=== PATIENT | female | born 1970 | race Caucasian/White ===

== ENCOUNTER → 2024-03-02 15:19 | Outpatient (REF) | payer OTHER, SELFPAY | LOC: HWWDC 15:19 | PROVIDERS: ATTENDING PHYSICIAN Obstetrics & Gynecology; FAMILY PHYSICIAN Family Medicine | DX: Z12.31 Encounter for screening mammogram for malignant neoplasm of breast (principal) | CPT/HCPCS: 77063; 77067 ==

== ENCOUNTER → 2024-07-10 14:00 | Outpatient (REF) | payer OTHER, SELFPAY | LOC: HWRCS 14:00 | PROVIDERS: ATTENDING PHYSICIAN Internal Medicine Cardiovascular Disease; FAMILY PHYSICIAN Family Medicine | DX: I10 Essential (primary) hypertension (principal); Z82.49 Family history of ischemic heart disease and other diseases of the circulatory system | CPT/HCPCS: 93306 ==

== ENCOUNTER → 2024-07-14 14:50 | Outpatient (REF) | payer OTHER, SELFPAY | LOC: HWRAD 14:50 | PROVIDERS: ATTENDING PHYSICIAN Internal Medicine Cardiovascular Disease; FAMILY PHYSICIAN Family Medicine | DX: I10 Essential (primary) hypertension (principal); Z82.49 Family history of ischemic heart disease and other diseases of the circulatory system | CPT/HCPCS: 71250 ==

== ENCOUNTER 2025-03-19 11:16 | Emergency (ER) | payer OTHER, SELFPAY ==
[2025-03-19 12:03] LABS: Hematocrit 38.2 % (37.0-47.0); Hemoglobin 12.9 g/dL (12.0-16.0); Mean Corp Hgb Conc. 33.8 g/dL (33.0-37.0); Mean Corpuscular Volume 88.8 fL (81.0-99.0); Nucleated Red Blood Cells % 0 %; Platelet Count 226 10^3/uL (130-400); Red Cell Dist. Width 12.7 % (11.5-14.5)
[2025-03-19 12:13] LABS: APTT 28.3 Sec (23.4-35.0)
[2025-03-19 12:28] LABS: ALT (SGPT) 16 U/L (0-35); AST (SGOT) 31 U/L (14-36); Albumin 4.4 g/dl (3.5-5.0); Alkaline Phosphatase 54 U/L (38-126); Blood Urea Nitrogen 13 mg/dl (7-17); Calcium 9.2 mg/dl (8.4-10.2); Carbon Dioxide 29 mmol/L (22-30); Chloride 103 mmol/L (98-107); Glucose 95 mg/dl (70-99); Potassium 4.5 mmol/L (3.5-5.1); Sodium 136 mmol/L (135-145); Total Protein 7.6 g/dl (6.3-8.2); Troponin I < 0.012 ng/ml; eGFR > 60.00
--- NOTE | 2025-03-19 13:11 | ED.GENMED ---
History of Present Illness
General
Chief Complaint: Musculo-Skeletal Complaint
Time Seen by Provider: 03/19/25 12:50
History of Present Illness
History of Present Illness:
Nicole is a 54-year-old female with past medical history of hypothyroidism who presents with sudden onset of left scapular pain that radiates to her arm and neck 2 minutes prior to arrival. Denies any associated chest pain, nausea, vomiting,
shortness of breath. Never experienced pain like this before and was concerned. Pain worsens with movement of her arm and neck. She was working at a computer when pain began
Past History
Past History
ED Past Medical History: Other (torn r rotator cuff)
ED Past Surgical History: Other (parathyroid surgery)
Phy Exam
General Physical Exam
General Presentation: well appearing and no apparent distress
General Skin: warm and dry
General Habitus: normal
General Mental: alert
General Hydration: appears well hydrated
ENT Exam
ENT Exam: EOMI, pharynx normal, neck supple and normocephalic
Eye Exam
Eye Exam: PERRL, cornea clear and conjunctiva normal
Cardiovascular Exam
Cardiovascular Exam: regular rate/rhythm, no edema, no murmur and normal peripheral pulses
Pulmonary Exam
Pulmonary Exam: lungs clear, no respiratory distress, no rales, no crackles, no rhonchi, no stridor, no wheezing and no cough
Gastrointestinal Exam
Gastrointestinal Exam: normal bowel sounds, non tender, soft, no organomegaly, no pulsatile mass and non distended
Neurological Exam
Neurological Exam: alert, oriented x3, no motor deficits and speech normal
Musculoskeletal Exam
Musculoskeletal Exam: full ROM, no edema and other (Pain along left trapezius muscle)
Skin Exam
Skin Exam: normal color, warm/dry, no rash and no petechia
Psychiatric Exam
Psychiatric Exam: normal mood/affect
Course
Orders/Labs/Results
Orders:
Orders
03/19/25 11:30
Electrocardiogram (*1) Urgent
Reason for Study: Other
Other Reason for Exam: L scapular pain
EKG- Treatment ONCE
03/19/25 11:49
Complete Blood Count/With Diff Urgent
Comprehensive Metabolic Panel Urgent
PTT Urgent
Troponin I Urgent
03/19/25 13:21
Troponin I Urgent
03/19/25 11:49
03/19/25 11:49
Vital Signs
Initial and Last Documented VS:
Initial Vital Signs
Temp Pulse Resp Pulse Ox
36.7 C 58 16 99
03/19/25 11:25 03/19/25 11:25 03/19/25 11:25 03/19/25 11:25
Last Documented Vital Signs
Temp Pulse Resp BP Pulse Ox
36.7 C 54 16 148/89 100
03/19/25 11:25 03/19/25 15:12 03/19/25 15:12 03/19/25 15:12 03/19/25 15:12
MDM/Problems Addressed
Differential Diagnosis Includes:
EKG without evidence of STEMI. No prior EKG to compare to. Initial troponin negative. All lab work unremarkable.
No trauma to the arm and is able to range it without difficulty. Chest x-ray and extremity x-rays not indicated at this time. Repeat troponin 3 hours and if negative will discharge from the ER
*Pulse Oximetry
SaO2: 99
Oxygen Mode of Delivery: Room air
Patient hypoxic: no
*Critical Care Note
Total Time (30-74mins, 75-104mins- exclusive of procedures): Not Applicable
Update Note
Update Note:
Repeat troponin remains negative. Patient reports pain is stable to slightly improved. Will discharge from the ER. Prescription for Robaxin has been sent to her pharmacy.
ED Attending Note
-
Portions of this chart may have been created with voice recognition software.� Occasional wrong word or��sound alike� substitutions may have occurred due to the inherent limitations of voice recognition software.
Discharge Plan
Departure
Patient Disposition: Home (Routine Discharge)
Date of Disposition: 03/19/25
Time of Disposition: 15:06
Patient with high blood pressure during this ER visit?: No
Discharge Problem:
Muscle strain
Instructions: Muscle strain - ED (DC)
Prescriptions:
New
methocarbamol 500 mg tablet
500 mg PO TID Qty: 14 0RF
No Action
multivitamin Tablet
1 tab PO DAILY
levothyroxine
1 tab PO DAILY
Referrals:
Beata Mendoza DO [Family Provider, Family Practice]
Activity Restrictions/Additional Instructions:
Take Tylenol and ibuprofen as needed for pain. You may use ice or heat for comfort. All lab work was normal here in the ER. Follow-up with your primary care physician if pain persist beyond 1 week
Interventions
Interventions:
*Risk Screen - Suicide Last Done: 03/19/25 11:21
*General Assessment Last Done: 03/19/25 13:21
*Neglect/Abuse Screening Last Done: 03/19/25 13:21
*ED COVID-19 Vaccine History Last Done: 03/19/25 13:21
*ED Influenza Vaccine History Last Done: 03/19/25 13:21
[facility] Fall Risk Assessment Tool Last Done: 03/19/25 13:15
*Nursing Disposition Last Done: 03/19/25 15:13
ED-Musculoskeletal Assessment Last Done: 03/19/25 13:16
Discharge Date and Time
Discharge Date/Time: 03/19/25 15:13
Print Language: LITHUANIAN
[2025-03-19 13:52] LABS: Troponin I < 0.012 ng/ml
[2025-03-19 15:12] VITALS: BP 148/89
== END 2025-03-19 15:13 | disposition home or self-care (01) ==
LOC: EMR 11:16
PROVIDERS: Student in an Organized Health Care Education/Training Program; Surgery Trauma Surgery; EMERGENCY PHYSICIAN Emergency Medicine; FAMILY PHYSICIAN Family Medicine
DX: S46.812A Strain of other muscles, fascia and tendons at shoulder and upper arm level, left arm, initial encounter (principal); X58.XXXA Exposure to other specified factors, initial encounter; E03.9 Hypothyroidism, unspecified
CPT/HCPCS: 99284; 80053; 84484; 85025; 85730; 93005